=== PATIENT | female | born 1975 | race African-American/Black ===

== ENCOUNTER 2019-08-31 11:32 | Observation (INO) ==
[2019-08-31] MEDS ORDERED: SODIUM CHLORIDE 0.9% 1,000 ML IV STA (12:08)
[2019-08-31 12:51] LABS: Basophils # 0.1 10*3/uL (0.0-0.2); Basophils % 0.9 % (0.0-0.8); Eosinophils # 0.4 10*3/uL (0.0-0.87); Eosinophils % 4.6 % (0.00-10.9); Hematocrit 38.5 VOL% (35.7-47.0); Hemoglobin 12.8 GM/DL (12.0-16.0); Immature Granulocytes % 0.2 %; Immature Granulocytes Absolute 0.02 #; Lymphocytes # 3.6 10*3/uL (1.4-4.0); Lymphocytes % 44.4 % (21.3-54.2); Mean Corpuscular HGB Conc 33.2 GM/DL (32-36); Mean Corpuscular Volume 93.7 FL (87-102); Mean Platelet Volume 10.8 FL (9.6-12.0); Monocytes % 5.1 % (1.7-12.7); Neutrophils % 44.8 % (38.7-73.9); Platelet Count 283 T/CUMM (130-400); Red Blood Count 4.11 MC/CUMM (3.8-5.5); Red Cell Distribution Width 12.4 % (9.3-17.3); White Blood Count 8.2 T/CUMM (4-12)
[2019-08-31 12:57] LABS: INR 0.9
[2019-08-31 13:14] LABS: Alanine Aminotransferase 17 U/L (13-56); Albumin 3.6 G/DL (3.4-5.0); Alkaline Phosphatase 64 U/L (45-117); Aspartate Amino Transferase 15 U/L (0-37); Blood Urea Nitrogen 5 MG/DL (7-18); Calcium 9.2 MG/DL (8.5-10.1); Estimated Glom Filtration Rate 94 ML/MIN; Glucose 94 MG/DL (74-106); Osmolality,Calculated 271.7 MOS/KG (273-304); Total Protein 8.3 G/DL (6.4-8.3)
[2019-08-31 13:56] LABS: Apearance,Urine CLEAR (Clear); Bilirubin,Urine Negative (Negative); Blood, Urine Negative (Negative); Glucose,Urine (UA) Negative (Negative); Ketones,Urine Negative (Negative); Nitrite,Urine Negative (Negative); Protein,Urine Negative; RBC,Urine <1 /HPF (0-4); Squamous Epithelial Cell,Urine Occasional /HPF (0-10); Urine Color Straw (Yellow); Urine Urobilinogen < 2.0 EU/DL (0.2-1.0); WBC,Urine <1 /HPF (0-6)
[2019-08-31 14:44] LABS: Barbiturates Screen,Urine Negative (Negative); Benzodiazepines Screen,Urine Negative (Negative); Cannabinoid Screen,Urine Negative (Negative); Opiate Screen,Urine Negative (Negative); Phencyclidine Screen,Urine Negative (Negative)
[2019-08-31] MEDS ORDERED: ACETAMINOPHEN 325 MG TABLET PO PRN (15:16)
[2019-08-31] MEDS ORDERED: ONDANSETRON 4 MG/2 ML VIAL IV PRN (15:16)
[2019-08-31] MEDS ORDERED: ENOXAPARIN 40 MG/0.4 ML SYRINGE SUBCUT SCH (16:00)
[2019-08-31] MEDS ORDERED: SODIUM CHLORIDE 0.9% 1,000 ML IV SCH (16:00)
[2019-08-31] MEDS: oxyCODONE/ACETAMINOPHEN 5-325 MG TABLET PO PRN ×2 (17:36→21:53)
[2019-08-31] MEDS ORDERED: POTASSIUM CHLORIDE 20 MEQ TABLET PO ONE (18:00)
[2019-08-31] MEDS ORDERED: INFLUENZA VIRUS VACCINE 0.5 ML SYRINGE IM ONE (19:04)
[2019-08-31] MEDS ORDERED: OXYCODONE ACETAMINOPHEN PO PRN (19:34)
[2019-08-31] MEDS ORDERED: XTAMPZA PO PRN (19:34)
[2019-08-31] MEDS ORDERED: tiZANidine 4 MG TABLET PO PRN (20:00)
[2019-08-31] MEDS ORDERED: LISINOPRIL/HCTZ 20-25 MG TABLET PO SCH (21:00)
[2019-08-31] MEDS ORDERED: ZALEPLON 5 MG CAPSULE PO SCH (21:00)
[2019-08-31] MEDS: TOPIRAMATE 25 MG TABLET PO SCH (21:49)
[2019-08-31] MEDS: GABAPENTIN 300 MG CAPSULE PO SCH (21:50)
[2019-09-01] MEDS: GABAPENTIN 300 MG CAPSULE PO SCH (08:03)
[2019-09-01] MEDS: TOPIRAMATE 25 MG TABLET PO SCH (08:04)
[2019-09-01] MEDS ORDERED: PANTOPRAZOLE 40 MG TABLET PO SCH (09:00)
[2019-09-01] MEDS: oxyCODONE/ACETAMINOPHEN 5-325 MG TABLET PO PRN (11:16)
[2019-09-01 12:10] VITALS: BP 90/60
[2019-09-02] MEDS ORDERED: lisinopriL 20 MG TABLET PO SCH (09:00)
== END 2019-09-01 15:53 | disposition home or self-care (01) ==
LOC: N.ED 11:32 → N.EDINP 11:32 → N.2W 16:12
PROVIDERS: ADMIT Internal Medicine; ATTEND Internal Medicine